=== PATIENT | male | born 1975 | race African-American/Black ===

== ENCOUNTER 2022-08-03 12:21 | Emergency (ER) | payer OTHER, SELFPAY ==
[2022-08-03 12:35] VITALS: BP 143/93; PULSE 70; RESP 16; TEMP 36.8; O2SAT 98
--- NOTE | 2022-08-03 13:36 | ED.SKABFB ---
HPI - Skin/Abscess/Foreign Bdy General Chief complaint: Skin/Abscess/Foreign Body Stated complaint: Allergic Reaction Time Seen by Provider: 08/03/22 13:36 Source: patient and RN notes reviewed Mode of arrival: ambulatory Limitations: no limitations History of Present Illness HPI narrative: 47-year-old male presents with concern for generalized itchy rash. He reports symptoms started she on Saturday after he stayed in a hotel. He reports similar instance many years ago. He denies any known triggers or allergies. He denies swollen lips, swollen tongue. Reports he has been taking 2 Benadryl every 4 hours which helps ease the itching but does not resolve it. He reports the hives, that change and vary in location MD complaint: rash Related Data Home Medications Medication Instructions Recorded Confirmed amiodarone 200 mg tablet 200 mg PO DAILY 08/03/22 08/03/22 metoprolol succinate 25 mg 25 mg PO DAILY 08/03/22 08/03/22 tablet,extended release 24 hr pantoprazole 40 mg tablet,delayed 40 mg PO DAILY 08/03/22 08/03/22 release rivaroxaban 20 mg tablet (Xarelto) 20 mg PO DAILY 08/03/22 08/03/22 Allergies Allergy/AdvReac Type Severity Reaction Status Date / Time No Known Allergies Allergy Verified 08/03/22 13:10 Review of Systems Review of Systems: CONSTITUTIONAL: Denies malaise, chills, sweats, or fever. EYES: Denies redness, or discharge. ENT: Denies rhinorrhea, congestion, swollen lips, swollen tongue CARDIOVASCULAR: Denies chest pain, palpitations, or edema. RESPIRATORY: Denies cough or dyspnea. GASTROINTESTINAL: Denies abdominal pain, nausea, vomiting SKIN: Reports generalized itchy rash MUSCULOSKELETAL: Denies joint pain or myalgia. NEUROLOGIC: Denies headache. All systems reviewed & are unremarkable except as noted in HPI and below PMFSH Comments At time of signature, agree with nursing past medical, surgical, social and family history. There is no relevant family history pertinent to the presenting complaint Exam Narrative: GENERAL: Well-appearing, well-nourished, and in no acute distress. HEAD: Normocephalic, atraumatic. EYES: PERRLA, conjunctivae clear, and EOMI. ENT: Mucous membranes moist. Oropharynx without edema, erythema or lesions. NECK: Supple. No lymphadenopathy CHEST: Clear to auscultation. No respiratory distress. HEART: Regular rate and rhythm. SKIN: Warm, dry. Urticarial rash noted on the neck, arms NEURO: Alert and oriented x3. PSYCH: Normal mood and affect Course Course Emergency Course: Patient is aware of diagnosis, understands and agrees to treatment plan. Anticipatory guidance given. Patient agrees to follow-up as directed and is aware of reasons to seek care at the emergency department. Portions of this record may have been created with voice recognition software Level of Care: Express Care Visit Vital Signs Vital signs: Vital Signs Temperature 98.3 F 08/03/22 12:35 Pulse Rate 70 08/03/22 12:35 Respiratory Rate 16 08/03/22 12:35 Blood Pressure 143/93 H 08/03/22 12:35 Pulse Oximetry 98 08/03/22 12:35 Oxygen Delivery Room Air 08/03/22 12:35 Temperature 98.3 F 08/03/22 12:35 Pulse Rate 70 08/03/22 12:35 Respiratory Rate 16 08/03/22 12:35 Blood Pressure 143/93 H 08/03/22 12:35 Pulse Oximetry 98 08/03/22 12:35 Oxygen Delivery Room Air 08/03/22 12:35 Reviewed. MDM - Skin/Abscess/Foreign Bdy MDM Narrative Medical decision making narrative: Does not appear at this time to be erythema multiforme, bullous, SJS, TEN; no evidence at this time to suggest RMSF, endocarditis or Lyme disease; patient looks well, nontoxic and is tolerating oral intake; no neurologic signs or symptoms; no headache, photophobia or neck pain; afebrile; appropriate for initial outpatient treatment; discussed the importance of follow-up, patient agrees; question, viral exanthema, contact dermatitis, allergic dermatitis, eczema, urticaria, bedbugs,
[2022-08-03] MEDS: methylPREDNISolone SOD SUCC 125 MG VIAL IM (13:53)
== END 2022-08-03 14:04 | disposition home or self-care (01) ==
PROVIDERS: Emergency Provider Nurse Practitioner
DX: L50.9 Urticaria, unspecified (principal); I48.91 Unspecified atrial fibrillation
CPT/HCPCS: 96372; 99202; G0463; J2930